=== PATIENT | female | born 1945 | race Caucasian/White ===

== ENCOUNTER 2017-08-27 08:21 | Outpatient (CLI) | payer OTHER ==
[~2017-08-27 08:21] MED LIST: ATENOLOL25 MG PO; CIPRO500 MG; FLAGYL ER750 MG; HYDROCHLOROTH12.5 M1 PO; HYDROCHLOROTH12.5 MG; NEXIUM I.V20 MG/VIAL; NEXIUM40 M1 PO; PENTASA500 MG PO; TAMOXIFEN CITRA20 MG PO; TENORMIN25 MG PO; VASOTEC20 MG PO
== END 2017-08-27 08:56 | disposition home or self-care (01) ==
LOC: RAD 501 08:21
DX: R10.9 Unspecified abdominal pain (principal)

== ENCOUNTER 2017-08-27 10:45 | Outpatient (CLI) | payer OTHER | END 2017-08-27 10:54 | disposition home or self-care (01) | LOC: TOM 10:45 | DX: K43.2 Incisional hernia without obstruction or gangrene (principal) ==

== ENCOUNTER 2017-12-17 10:22 | Outpatient (CLI) | payer OTHER | END 2017-12-17 17:00 | disposition home or self-care (01) | LOC: TOM 10:22 | DX: R42 Dizziness and giddiness (principal); M12.89 Other specific arthropathies, not elsewhere classified, multiple sites; M19.90 Unspecified osteoarthritis, unspecified site; M46.47 Discitis, unspecified, lumbosacral region ==

== ENCOUNTER 2018-07-18 12:22 | Outpatient (CLI) | payer OTHER | END 2018-07-18 14:00 | disposition home or self-care (01) | LOC: TOM 12:22 | DX: R10.9 Unspecified abdominal pain (principal) ==

== ENCOUNTER 2019-01-09 10:33 | Outpatient (CLI) | payer OTHER | END 2019-01-09 10:38 | disposition home or self-care (01) | LOC: RAD 10:33 | DX: C50.411 Malignant neoplasm of upper-outer quadrant of right female breast (principal); Z17.0 Estrogen receptor positive status [ER+]; C79.51 Secondary malignant neoplasm of bone; M16.0 Bilateral primary osteoarthritis of hip ==

== ENCOUNTER 2019-04-23 10:09 | Outpatient (CLI) | payer OTHER | END 2019-04-23 10:30 | disposition home or self-care (01) | LOC: TOM 10:09 | DX: J44.9 Chronic obstructive pulmonary disease, unspecified (principal); I10 Essential (primary) hypertension ==

== ENCOUNTER 2020-01-01 07:32 | Outpatient (CLI) | payer OTHER | END 2020-01-01 07:37 | disposition home or self-care (01) | LOC: SONOGRAMA 07:32 → MAMO-SONO 08:15 | DX: R94.5 Abnormal results of liver function studies (principal) ==

== ENCOUNTER 2020-01-16 08:19 | Outpatient (CLI) | payer OTHER | END 2020-01-16 08:20 | disposition home or self-care (01) | LOC: RAD 08:19 | PROVIDERS: ATTEND Orthopaedic Surgery | DX: M25.551 Pain in right hip (principal); M25.552 Pain in left hip ==

== ENCOUNTER 2020-12-18 20:49 | Emergency (ER) | payer OTHER ==
[~2020-12-18] VITALS: Ht 157.5 cm; Wt 81.6 kg
[2020-12-18] MEDS ORDERED: ACETAMINOPHEN650 M2 PO (23:22)
[2020-12-18] MEDS ORDERED: NORFLEX100MG PO (23:22)
== END 2020-12-18 23:31 | disposition home or self-care (01) ==
LOC: ER 20:49
DX: S00.03XA Contusion of scalp, initial encounter (principal); M54.2 Cervicalgia; W18.09XA Striking against other object with subsequent fall, initial encounter; Y93.89 Activity, other specified; Y92.018 Other place in single-family (private) house as the place of occurrence of the external cause; Y99.8 Other external cause status

== ENCOUNTER 2021-04-08 08:00 | Outpatient (CLI) | payer OTHER ==
[~2021-04-08 08:00] MED LIST changes: +ACETAMINOPHEN650 M2 PO; +NORFLEX100MG PO
== END 2021-04-08 08:30 | disposition home or self-care (01) ==
LOC: PPH VACUNA 08:00
PROVIDERS: ATTEND Emergency Medicine Pediatric Emergency Medicine
DX: Z23 Encounter for immunization (principal)

== ENCOUNTER 2021-04-08 10:58 | Outpatient (CLI) | payer OTHER | END 2021-04-08 11:06 | disposition home or self-care (01) | LOC: MAMO-SONO → RAD 10:58 | PROVIDERS: ATTEND Internal Medicine Cardiovascular Disease | DX: M85.842 Other specified disorders of bone density and structure, left hand (principal); M77.32 Calcaneal spur, left foot; M77.31 Calcaneal spur, right foot; M12.88 Other specific arthropathies, not elsewhere classified, other specified site ==

== ENCOUNTER 2021-04-29 08:30 | Outpatient (CLI) | payer OTHER | END 2021-04-29 08:45 | disposition home or self-care (01) | LOC: PPH VACUNA 08:30 | PROVIDERS: ATTEND Emergency Medicine Pediatric Emergency Medicine | DX: Z23 Encounter for immunization (principal) ==

== ENCOUNTER 2022-03-08 08:59 | Outpatient (CLI) | payer OTHER | END 2022-03-08 09:05 | disposition home or self-care (01) | LOC: RAD 08:59 | PROVIDERS: ATTEND Orthopaedic Surgery | DX: M16.0 Bilateral primary osteoarthritis of hip (principal) ==

== ENCOUNTER 2022-08-02 13:27 | Outpatient (CLI) | payer OTHER | END 2022-08-02 14:00 | disposition home or self-care (01) | LOC: PPH VACUNA 13:27 | PROVIDERS: ATTEND Emergency Medicine Pediatric Emergency Medicine | DX: Z23 Encounter for immunization (principal) ==

== ENCOUNTER 2022-09-13 10:15 | Outpatient (CLI) | payer OTHER | END 2022-09-13 10:29 | disposition home or self-care (01) | LOC: TOM 10:15 | PROVIDERS: ATTEND Internal Medicine Cardiovascular Disease | DX: K57.30 Diverticulosis of large intestine without perforation or abscess without bleeding (principal); R10.9 Unspecified abdominal pain ==

== ENCOUNTER 2024-04-22 18:06 | Inpatient (IN) | payer OTHER ==
[~2024-04-22] VITALS: Ht 160 cm; Wt 81.6 kg
[2024-04-22] MEDS ORDERED: METOPROLOL SUC100 MG PO (18:10)
[2024-04-22] MEDS ORDERED: AMLODIPINE BESYL5 MG PO (18:10)
[2024-04-22] MEDS ORDERED: 0.9 % SODIUM CHLORIDE 1,000 ML IV SCH (18:30)
[2024-04-22 18:44] LABS: MEAN CELL VOLUME 83.7 fL (80.00-100.00); MEAN CORPUSCULAR HEMOGLOBIN 27.9 pg (27.00-32.0); MEAN CORPUSCULAR HGB CONC 33.3 g/dl (32.0-36.0); PLATELET COUNT 260 K/uL (150-450); RED BLOOD COUNT 5.37 M/uL (4.00-6.00); RED CELL DISTRIBUTION WIDTH 15.6 % (11.5-14.5)
[2024-04-22 19:13] LABS: CALCIUM 9.1 mg/dL (8.5-10.1); GFR 7.9; POTASSIUM 3.16 mEq/L (3.5-5.1)
[2024-04-22 19:25] LABS: CREATININE SERUM 5.28 mg/dL (0.55-1.02)
[2024-04-22] MEDS ORDERED: 0.9 % SODIUM CHLORIDE 1,000 ML IV ONE (20:00)
[2024-04-22] MEDS ORDERED: METRONIDAZOLE/SODIUM CHLORIDE 100 ML IV SCH (20:04)
[2024-04-22] MEDS ORDERED: CEFTRIAXONE SODIUM 2,000 MG in 0.9 % SODIUM CHLORIDE 100 ML IV SCH (20:04)
[2024-04-22] MEDS ORDERED: ACETAMINOPHEN 500 MG GEL..CAP PO PRN (20:15)
[2024-04-22] MEDS ORDERED: ONDANSETRON HCL 4 MG in 0.9 % SODIUM CHLORIDE 50 ML IV PRN (20:15)
[2024-04-22] MEDS ORDERED: POTASSIUM CHLORIDE IN 0.9%NACL 1,000 ML IV ONE (20:15)
[2024-04-22 21:09] LABS: ABG PH 7.348 (7.35-7.45); ABG PO2 75.5 mmHg (80-100); ABG pCO2 32.1 mmHg (35-45); BASE EXCESS -7.2 mmol/l; BICARBONATE 17.2 mmol/l (23-25); SaO2 93.7 %; Tco2 18.2 mmol/l
[2024-04-22 21:17] LABS: allen test SATISFACTORY; o2 21 %; puncture site BRADIAL RIGHT
[2024-04-22 21:44] LABS: INR 1.05; PARTIAL THROMBOPLASTIN TIME 27.1 SECONDS (22.0-34.0); PROTHROMBIN TIME 11.4 SECONDS (9.0-11.5)
[2024-04-22 21:46] LABS: MAGNESIUM 1.6 mg/dL (1.8-2.4); PHOSPHOROUS 6.6 mg/dL (2.5-4.9)
[2024-04-22 21:50] LABS: C-REACTIVE PROTEIN 7.37 MG/DL (0.00-0.29)
[2024-04-22 23:56] VITALS: BP 135/78; O2SAT 98
[2024-04-23] VITALS (11 sets, daily range): BP systolic 86–130; BP diastolic 53–76; O2SAT 90–97
[2024-04-23 05:12] LABS: ALBUMIN 3.3 gm/dL (3.4-5.0); BILIRUBIN TOTAL 0.36 mg/dL (0.3-1.2); GFR 7.13; GLOBULINA 3.7 G/DL (2.4-3.5); POTASSIUM 4.66 mEq/L (3.5-5.1)
[2024-04-23 05:26] LABS: CREATININE SERUM 5.77 mg/dL (0.55-1.02)
[2024-04-23 06:00] LABS: URINE BACTERIA 2933.2 uL (0.0-1933); URINE CAST 5.03 uL (0.0-1.40); URINE EPITHELIAL CELLS 119.9 uL (0.0-38.8); URINE RBC 44.4 uL (0.0-20.8); URINE WBC 292.9 uL (0.0-23.2)
[2024-04-23 06:06] LABS: URINE BILIRRUBIN NEGATIVE (NEGATIVE); URINE BLOOD SMALL; URINE GLUCOSE NEGATIVE (NEGATIVE); URINE KETONE NEGATIVE (NEGATIVE); URINE LEUKOCYTE MODERATE; URINE NITRATE NEGATIVE; URINE PROTEIN NEGATIVE (NEGATIVE); URINE UROBILINOGEN 0.2 E.U./dl
[2024-04-23 06:07] LABS: URINE APPEARANCE CLOUDY; URINE COLOR YELLOW
[2024-04-23] MEDS ORDERED: MAGNESIUM SULFATE IN WATER 2 GM/50 ML PIGGYBAG IV NR (07:40)
[2024-04-23] MEDS ORDERED: ENOXAPARIN SODIUM 30 MG/0.3 ML SYRINGE SUBCUTANEO SCH (09:00)
[2024-04-23] MEDS ORDERED: METOPROLOL SUCCINATE 100 MG TAB.SR.24H PO SCH (09:00)
[2024-04-23] MEDS ORDERED: PANTOPRAZOLE SODIUM 40 MG/VIAL VIAL IV SCH (09:00)
[2024-04-23] MEDS ORDERED: 0.9 % SODIUM CHLORIDE 1,000 ML IV SCH (09:45)
[2024-04-24] VITALS (9 sets, daily range): BP systolic 103–127; BP diastolic 61–64; O2SAT 94–98
[2024-04-24 07:08] LABS: ALBUMIN 2.8 gm/dL (3.4-5.0); BILIRUBIN TOTAL 0.23 mg/dL (0.3-1.2); CALCIUM 7.2 mg/dL (8.5-10.1); GLOBULINA 3.1 G/DL (2.4-3.5); MAGNESIUM 1.9 mg/dL (1.8-2.4); POTASSIUM 4.4 mEq/L (3.5-5.1); TOTAL PROTEIN 5.9 gm/dL (6.4-8.2)
[2024-04-24 07:09] LABS: HEMOGLOBIN 12.1 g/dL (12.0-15.00); MEAN CELL VOLUME 84.9 fL (80.00-100.00); MEAN CORPUSCULAR HEMOGLOBIN 27.8 pg (27.00-32.0); MEAN CORPUSCULAR HGB CONC 32.8 g/dl (32.0-36.0); PLATELET COUNT 171 K/uL (150-450); RED BLOOD COUNT 4.35 M/uL (4.00-6.00); RED CELL DISTRIBUTION WIDTH 15.7 % (11.5-14.5)
[2024-04-24 07:40] LABS: C-REACTIVE PROTEIN 7.54 MG/DL (0.00-0.29); GFR 8.38
[2024-04-24 07:41] LABS: CREATININE SERUM 5.02 mg/dL (0.55-1.02)
[2024-04-24] MEDS ORDERED: DEXTROSE 5 % AND 0.9 % NACL 1,000 ML IV SCH ×2 (15:30)
[2024-04-24 16:59] LABS: ob POSITIVE (NEGATIVE)
[2024-04-25] VITALS (10 sets, daily range): BP systolic 120–132; BP diastolic 63–80; O2SAT 80–99
[2024-04-25 05:52] LABS: ALBUMIN 2.7 gm/dL (3.4-5.0); CALCIUM 7.6 mg/dL (8.5-10.1); CREATININE SERUM 3.45 mg/dL (0.55-1.02); GFR 12.91; PHOSPHOROUS 4.4 mg/dL (2.5-4.9); POTASSIUM 3.8 mEq/L (3.5-5.1)
[2024-04-25] MEDS ORDERED: SODIUM BICARBONATE 50MEQ/50ML VIAL IV SCH (14:00)
[2024-04-25] MEDS ORDERED: LACTOBACILLUS ACIDOPHILUS 1 CAP CAP PO SCH ×2 (17:00→20:48)
[2024-04-26] VITALS (9 sets, daily range): BP systolic 131–146; BP diastolic 76–84; O2SAT 89–98
[2024-04-26 07:58] LABS: ALBUMIN 2.5 gm/dL (3.4-5.0); CALCIUM 7.8 mg/dL (8.5-10.1); CREATININE SERUM 2.27 mg/dL (0.55-1.02); GFR 20.93; PHOSPHOROUS 3.3 mg/dL (2.5-4.9); POTASSIUM 3.47 mEq/L (3.5-5.1)
[2024-04-26 08:39] LABS: PH,URINE 5.5; URINE BILIRRUBIN NEGATIVE (NEGATIVE); URINE BLOOD MODERATE; URINE KETONE NEGATIVE (NEGATIVE); URINE LEUKOCYTE NEGATIVE; URINE NITRATE NEGATIVE; URINE PROTEIN NEGATIVE (NEGATIVE); URINE UROBILINOGEN 0.2 E.U./dl
[2024-04-26 08:51] LABS: MAGNESIUM 1.4 mg/dL (1.8-2.4)
[2024-04-26 09:54] LABS: URINE APPEARANCE CLEAR; URINE COLOR YELLOW; URINE GLUCOSE 250 MG/DL (NEGATIVE)
[2024-04-26 09:56] LABS: URINE EPITHELIAL CELLS NONE SEEN /HPF
[2024-04-26 09:57] LABS: URINE BACTERIA FEW; URINE MUCUS SCANT; URINE YEAST MANY /hpf
[2024-04-26 09:58] LABS: URINE CRYSTALS MODERATE /HPF
[2024-04-26 10:55] LABS: HEMATOCRIT 33.8 % (36.0-45.00); HEMOGLOBIN 11.5 g/dL (12.0-15.00); MEAN CELL VOLUME 81.3 fL (80.00-100.00); MEAN CORPUSCULAR HEMOGLOBIN 27.7 pg (27.00-32.0); PLATELET COUNT 179 K/uL (150-450); RED BLOOD COUNT 4.15 M/uL (4.00-6.00)
[2024-04-26 11:15] LABS: ALBUMIN 2.4 gm/dL (3.4-5.0); CALCIUM 7.6 mg/dL (8.5-10.1); CREATININE SERUM 2.06 mg/dL (0.55-1.02); GFR 23.41; PHOSPHOROUS 2.6 mg/dL (2.5-4.9); POTASSIUM 3.16 mEq/L (3.5-5.1)
[2024-04-26] MEDS ORDERED: MAGNESIUM SULFATE IN WATER 50 ML IV ONE (21:45)
[2024-04-26] MEDS ORDERED: POTASSIUM CHLORIDE IN 0.9%NACL 1,000 ML IV ONE (21:45)
[2024-04-27] VITALS (7 sets, daily range): BP systolic 145–156; BP diastolic 65–91; O2SAT 90–98
[2024-04-27 09:33] LABS: ALBUMIN 2.5 gm/dL (3.4-5.0); CALCIUM 7.6 mg/dL (8.5-10.1); CREATININE SERUM 1.26 mg/dL (0.55-1.02); GFR 41.29; MAGNESIUM 1.8 mg/dL (1.8-2.4); PHOSPHOROUS 2.2 mg/dL (2.5-4.9); POTASSIUM 3.58 mEq/L (3.5-5.1)
== END 2024-04-27 18:04 | disposition home or self-care (01) | DRG 683 ==
LOC: ER 18:06 → MEDI 21:14
PROVIDERS: Emergency Medicine; General Practice; Internal Medicine; Internal Medicine Infectious Disease; Internal Medicine Nephrology; ADMIT Internal Medicine; ATTEND Internal Medicine
PROC: BW21ZZZ Computerized Tomography (CT Scan) of Abdomen and Pelvis (ICD-10-PCS; principal; 2024-04-22)
PROC: 4A12X4Z Monitoring of Cardiac Electrical Activity, External Approach (ICD-10-PCS; 2024-04-23)
DX: N17.9 Acute kidney failure, unspecified (principal); E87.20 Acidosis, unspecified; K52.9 Noninfective gastroenteritis and colitis, unspecified

== ENCOUNTER 2024-10-08 10:24 | Emergency (ER) | payer OTHER ==
[~2024-10-08] VITALS: Ht 160 cm; Wt 77.6 kg
[~2024-10-08 10:24] MED LIST changes: +AMLODIPINE BESYL5 MG PO; +METOPROLOL SUC100 MG PO
[2024-10-08 10:51] VITALS: BP 126/76; O2SAT 97
[2024-10-08] MEDS ORDERED: 0.9 % SODIUM CHLORIDE 1,000 ML IV STA (12:00)
[2024-10-08] MEDS ORDERED: KETOROLAC TROMETHAMINE 30 MG VIAL IV STA (12:00)
[2024-10-08] MEDS ORDERED: MORPHINE SULFATE 4 MG/ML CARTRIDGE IV STA (12:01)
[2024-10-08] MEDS ORDERED: KETOROLAC TROMETHAMINE 30 MG VIAL ONE (12:14)
[2024-10-08 12:56] LABS: HEMATOCRIT 41.7 % (36.0-45.00); HEMOGLOBIN 13.7 g/dL (12.0-15.00); MEAN CELL VOLUME 86.6 fL (80.00-100.00); MEAN CORPUSCULAR HEMOGLOBIN 28.4 pg (27.00-32.0); MEAN CORPUSCULAR HGB CONC 32.8 g/dl (32.0-36.0); PLATELET COUNT 210 K/uL (150-450); RED BLOOD COUNT 4.82 M/uL (4.00-6.00); RED CELL DISTRIBUTION WIDTH 13.9 % (11.5-14.5)
[2024-10-08 13:14] LABS: URINE APPEARANCE Clear; URINE BILIRRUBIN Negative (NEGATIVE); URINE BLOOD Small; URINE COLOR Yellow; URINE GLUCOSE Negative (NEGATIVE); URINE KETONE Negative (NEGATIVE); URINE LEUKOCYTE Moderate; URINE NITRATE Negative; URINE PROTEIN Trace (NEGATIVE); URINE UROBILINOGEN 0.2 E.U./dl
[2024-10-08 13:15] LABS: URINE BACTERIA 108.9 uL (0.0-1933); URINE EPITHELIAL CELLS 40.6 uL (0.0-38.8); URINE RBC 121.6 uL (0.0-20.8); URINE WBC 159.7 uL (0.0-23.2)
[2024-10-08 13:32] LABS: URINE CAST 0.73 uL (0.0-1.40); URINE MUCUS MODERATE
[2024-10-08 15:52] LABS: ALBUMIN 3.3 gm/dL (3.4-5.0); BILIRUBIN TOTAL 0.43 mg/dL (0.3-1.2); CREATININE SERUM 0.47 mg/dL (0.55-1.02); GFR 128.84; GLOBULINA 3.4 G/DL (2.4-3.5); POTASSIUM 4.46 mEq/L (3.5-5.1); TOTAL PROTEIN 6.7 gm/dL (6.4-8.2)
== END 2024-10-08 15:43 | disposition home or self-care (01) ==
LOC: ER 10:27
DX: R10.9 Unspecified abdominal pain (principal); Z91.040 Latex allergy status; Z91.041 Radiographic dye allergy status; Z91.018 Allergy to other foods; K57.30 Diverticulosis of large intestine without perforation or abscess without bleeding
CPT/HCPCS: 36415; 74176; 96365; 96366; 99284; J1885; J7030

== ENCOUNTER 2024-11-12 07:18 | Outpatient (CLI) | payer OTHER | END 2024-11-12 07:23 | disposition home or self-care (01) | LOC: TOM 07:18 | PROVIDERS: ATTEND Specialist | DX: R10.9 Unspecified abdominal pain (principal); K57.90 Diverticulosis of intestine, part unspecified, without perforation or abscess without bleeding ==

== ENCOUNTER 2025-02-10 07:20 | Day surgery (SDC) | payer OTHER ==
[2025-02-10] MEDS ORDERED: DIPHENHYDRAMINE HCL 50 MG/ML VIAL 1ML IV STA (10:37)
[2025-02-10] MEDS ORDERED: MIDAZOLAM HCL 2 MG/2 ML VIAL IV STA (10:37)
== END 2025-02-10 11:55 | disposition home or self-care (01) ==
LOC: AMB-ENDOS 07:20
PROVIDERS: ATTEND Internal Medicine Gastroenterology
DX: D12.5 Benign neoplasm of sigmoid colon (principal); D12.8 Benign neoplasm of rectum; K63.5 Polyp of colon; R19.5 Other fecal abnormalities; K57.30 Diverticulosis of large intestine without perforation or abscess without bleeding